=== PATIENT | female | born 1950 | race American Indian/Alaskan Native ===

== ENCOUNTER 2018-02-23 08:33 | Day surgery (SDC) | payer MEDICARE ==
[2018-02-23 08:57] VITALS: BP 112/66
[2018-02-23] MEDS ORDERED: MARCAINE 0.5% INFILTRATI ONE ×2 (09:42→10:35)
[2018-02-23] MEDS ORDERED: XYLOCAINE 1% 20 mL ONE (09:43)
--- NOTE | 2018-02-23 10:31 | Short Stay Summary ---
Short Stay Documentation Date of service: 02/23/18 - History H&P: obtained from office - Allergies and Medications Current Medications: Allergies No Known Allergies Allergy (Verified 02/16/18 12:53) Home Medications Medication Instructions Recorded Confirmed Last Taken Type No Known Home Medications [No 02/16/18 02/16/18 Unknown History Reported Home Medications] - Brief post op/procedure progress note Date of procedure: 02/23/18 Pre-op diagnosis: Right port placement Post-op diagnosis: same Procedure: Right port removal Anesthesia: GETA Findings: Right port removal in its entirety Surgeon: EFREM PEREIRA Estimated blood loss: minimal Pathology: none Condition: stable - Disposition Condition at discharge: Good Disposition: DC-01 TO HOME OR SELFCARE Short Stay Discharge Plan Activity: no restrictions Diet: regular Wound: other (keep incision clean and dry; may shower in 24 hours; no baths, pools or lakes; do not rub or scrub incision) Follow up with: JESSICA WEBB MD [Primary Care Provider] - 7 Days EFREM PEREIRA MD [Staff Physician] - 7 Days
[2018-02-23] MEDS ORDERED: XYLOCAINE 1% 20 mL INFILTRATI ONE (10:34)
[2018-02-23] MEDS ORDERED: NACL 0.9% IR ONE (10:35)
--- NOTE | 2018-02-23 10:43 | Operative Report ---
Operative Report Operative Report: Date of Service: February 23, 2018 Preoperative diagnosis: Right port placement, central venous access not indicated Postoperative diagnosis: Same Procedure: Right port removal Surgeon: Jennyfer Pagan MD Anesthesia: Local Findings: Right port removal in its entirety EBL: Minimal Complications: None Disposition; PACU in good condition Indications for operative procedure: This is a 68 year old lady with a personal history of left breast cancer with right port placement. Central venous access not indicated and port removal requested. Patient wished to proceed with the above procedure. Procedure in Detail: Patient was taken to minor procedure room. A right port was identified. The right chest was prepped and draped in the normal sterile operative fashion. Timeout was performed. The skin was anesthetized with 1% lidocaine mixed with quarter percent Marcaine. Incision was made with a 15 blade knife at prior incision site. The subcutaneous tissues were opened. Port catheter was dissected free appropriately and removed. Then proceeded with removal of the port in its entirety. The port was removed in its entirety without any problems. Hemostasis was noted. The port cavity site was irrigated. The subcutaneous tissues were approximated and closed using interrupted 3-0 vicryl and skin brought together and closed using a running 4-0 monocryl followed by skin affix. She tolerated the procedure very well and was transferred to PACU in good condition.
== END 2018-02-23 10:37 | disposition home or self-care (01) ==
LOC: OR 08:33
PROVIDERS: ATTEND Surgery
DX: Z45.2 Encounter for adjustment and management of vascular access device (principal); Z85.3 Personal history of malignant neoplasm of breast